=== PATIENT | female | born 1960 | race Caucasian/White ===

== ENCOUNTER 2021-02-06 14:22 | Outpatient (CLI) | payer OTHER, SELFPAY ==
--- NOTE | 2021-02-06 14:30 | ECG_ITS ---
Measurements Intervals [place] Rate: 76 P: 14 RI: 148 QRS: 6 QRSD: 103 T: 28 QT: 386 QTc: 434 Interpretive Statements SINUS RHYTHM LEFT VENTRICULAR HYPERTROPHY MINIMAL Q WAVES- HIGH LATERAL LEADS BORDERLINE ECG Electronically Signed On 02-06-2021 14:53:50 CDT by Miah Ruiz D.O.
== END 2021-02-06 14:23 | disposition home or self-care (01) ==
LOC: ANHSURGERY 14:27
PROVIDERS: Visit Provider Surgery Plastic and Reconstructive Surgery
DX: Z01.818 Encounter for other preprocedural examination (principal); I10 Essential (primary) hypertension
CPT/HCPCS: 93005

== ENCOUNTER 2021-02-12 01:31 | Day surgery (SDC) | payer OTHER, SELFPAY ==
[2021-02-04 11:57] VITALS: BMI 25.9
--- NOTE | 2021-02-11 10:18 | P.PNAN_ITS ---
Anes - Initial Pre Proc Eval Procedure: Operation Date: 02/12/21 09:30 Proposed Procedures p Excision Mass Upper Back - Willi Galicia MD Date/Time: 02/11/21 10:18 Surgeon: Willi Galicia MD Pre Op Diagnosis: mass upper back Patient Data Age: 60 Gender: F Height: 1.68 m Weight: 73 kg Allergies Allergy/AdvReac Type Severity Reaction Status Date / Time adhesive tape AdvReac Severe Blister Verified 02/04/21 12:14 Home Medications Medication Instructions Recorded Confirmed Type docusate sodium 100 mg capsule 100 mg PO BID #14 cap 02/02/21 02/04/21 Rx hydrocodone 5 mg-acetaminophen 325 1 tablet PO Q6H PRN 02/02/21 02/04/21 History mg tablet ondansetron HCl 4 mg tablet 4 mg PO Q6H PRN #30 tablet 02/02/21 02/04/21 Rx amlodipine 2.5 mg PO DAILY 02/04/21 02/04/21 History levothyroxine 137 mcg PO DAILY 02/04/21 02/04/21 History multivitamin 1 tablet PO DAILY 02/04/21 02/04/21 History Patient hx anesthesia problems: none Family hx anesthesia problems: none Results Review: All pre-operative results and documents have been reviewed as part of the pre-operative evaluation. [facility] Past Medical History Medical History (Updated 02/02/21 @ 14:14 by Willi Galicia MD) Hypertension Mitral valve problem Thyroid disease Surgical History Surgical History History of oral surgery Family History Family History Mother Hypertension Osteoarthritis Sibling Kidney failure Social History Social History Smoking status: Never smoker Alcohol intake: current Alcohol use details: RARE Substance use: never Substance use type: does not use Living arrangements: with family Spiritual care concerns: No Anes - Eval Final PreProcedure Day of Procedure 02/11/21 10:18 Patient weight: overweight Heart: regular rate and rhythm Lungs: clear to auscultation and normal air movement Airway: Mallampati scale class II Neurological: alert and oriented Last oral intake: >/= 8 hours ASA classification: II Emergent: no Anesthetic plan: proceed Anesthesia type and monitoring: general GIVS and standard monitoring Results Review: All pre-operative results and documents have been reviewed as part of the pre-operative evaluation. Informed Consent: The patient's anesthetic plan and its attendant risks and benefits were discussed with the patient/family/POA. Questions were solicited and answers provided to the satisfaction of the patient/family/POA.
[2021-02-12 08:16] VITALS: BP 142/84; PULSE 82; RESP 18; TEMP 36.2; O2SAT 99; BMI 25.8
[2021-02-12] MEDS: LACTATED RINGERS 1,000 ML 30 ML IV CONT (08:30)
--- NOTE | 2021-02-12 08:50 | WPDHPUPDATE1 ---
History and Physical Update Update Date/Time: 02/12/21 08:50 History and Physical has been reviewed, including an updated exam of the patient. There are NO changes in the patient's condition. Risks, benefits, and alternatives have been discussed and questions answered. Patient agrees to proceed with procedure.
[2021-02-12] MEDS: ceFAZolin 2 GM/D5W 50 ML 2 GM/50 ML BAG IVPB (09:17)
[2021-02-12] MEDS: LIDO 1%/EPINEPHRINE 1:100,000 50 ML VIAL 20 ML INFILTRATE (09:29)
[2021-02-12 10:02] VITALS: BP 115/62; PULSE 74; RESP 18; O2SAT 95
--- NOTE | 2021-02-12 10:13 | W.PM.PROC2 ---
Procedure Note - Detailed Date of Procedure 02/12/21 Pre-op Diagnosis mass upper back Post-op Diagnosis same Procedure Performed Excision mass upper back 6.5cm with multilayered closure 6.5cm Surgeon Willi Galicia MD Anesthesia general Findings Mass upper back extending to muscle fascia. Appearance of lipoma. Description of Procedure Patient was marked in the preoperative holding area with her verification. She was taken to the operating room. Anesthesia provided by anesthesiology, Placed in a lateral decubitus position, and prepped and draped in standard sterile fashion. 1% lidocaine with epinephrine was used anesthetize locally. A 15 blade used to make an incision over the mass. Dissection was continued down until was identified completely removed. There is no evidence of neurovascular, muscle, or other structure injury. Copious irrigated with saline solution and verified a strict hemostasis. I closed in many layers to obliterate all space with 2-0 Vicryl. I did have to trim excess skin due to skin laxity over the area after closure. This is followed by 3-0 strata fix in a running subcuticular 4-0 Monocryl and tissue glue. She tolerated the procedure well. She was awoken, taken the PACU without difficulty. All instrument sponge counts were correct at the end the case. Estimated Blood Loss 5 Drains No Packing No Pathology yes (Subcutaneous mass sent.) Complications No immediate complications Condition stable Disposition PACU
[2021-02-12 10:32] VITALS: BP 125/65; PULSE 76; RESP 18; O2SAT 96
--- NOTE | 2021-02-12 13:52 | SUR.PHASEII ---
PT WAS READY TO GO BY 1045. WAITED ON RIDE FROM FRIEND UNTIL 1200.
== END 2021-02-12 12:00 | disposition home or self-care (01) ==
PROVIDERS: Visit Provider Surgery Plastic and Reconstructive Surgery
PROC: (CPT 21931; principal; 2021-02-12 09:30)
DX: D17.1 Benign lipomatous neoplasm of skin and subcutaneous tissue of trunk (principal); I10 Essential (primary) hypertension; I34.1 Nonrheumatic mitral (valve) prolapse; E07.9 Disorder of thyroid, unspecified
CPT/HCPCS: 21931; 88304; J0690; J2704; J3010; J7120